=== PATIENT | female | born 1995 | race Caucasian/White ===

== ENCOUNTER 2017-09-26 12:33 | Emergency (ER) | payer OTHER ==
[2017-09-26 13:04] VITALS: RESP 18
[2017-09-26] MEDS ORDERED: Naproxen 500 MG TAB PO STA (13:29)
[2017-09-26] MEDS ORDERED: Naproxen 500 MG TAB PO ONE (13:38)
--- NOTE | 2017-09-26 13:48 | ED PDOC ---
HPI: CCC, URI, Sore Throat Time Seen by Provider: 09/26/17 13:07 Chief Complaint (Nursing): ENT Problem Chief Complaint (Provider): ENT Problem History Per: Patient History/Exam Limitations: no limitations Onset/Duration Of Symptoms: Days (x1 week) Current Symptoms Are (Timing): Still Present Location Of Pain: Throat Associated Symptoms: Fever (tactile) Additional Complaint(s): 22 y/o female with no PMHx presents to the ED for evaluation of a sore throat, onset one week ago. Patient was taking Advil at onset but states has not taken any medications in the last few days. Patient also reports of a tactile fever at onset but states that shes been afebrile the last 5-6 days. Patient reports of doing salt water gargles with mild relief. In addition, patient reports girlfriend is also being evaluated in the ER for similar symptoms. Otherwise: (- ) chills (-) ear pain, (-) nausea, (-) vomiting, (-) diarrhea, (-) abdominal pain, (-) chest pain, (-) cough (-) SOB (-) neck pain/stiffness (-) recent travel, (-) rash, (-) neck pain. PMD: None LNMP: 09/21/2017 Past Medical History Reviewed: Historical Data, Nursing Documentation, Vital Signs Vital Signs: Last Vital Signs Temp 98 F 09/26/17 14:49 Pulse 79 09/26/17 14:49 Resp 18 09/26/17 14:49 BP 118/72 09/26/17 14:49 Pulse Ox 99 09/26/17 14:49 - Medical History PMH: No Chronic Diseases - Surgical History Surgical History: No Surg Hx - Family History Family History: States: Unknown Family Hx - Social History Current smoker - smoking cessation education provided: Yes (4 Cigarettes per day ) - Home Medications Home Medications: Ambulatory Orders Medication Instructions Recorded Naproxen 500 mg PO BID PRN #20 tab 09/26/17 - Allergies Allergies/Adverse Reactions: Allergies Allergy/AdvReac Type Severity Reaction Status Date / Time No Known Allergies Allergy Verified 09/26/17 13:00 Review of Systems ROS Statement: Except As Marked, All Systems Reviewed And Found Negative Constitutional: Positive for: Fever (tactile on onset) ENT: Positive for: Throat Pain. Negative for: Ear Pain Cardiovascular: Negative for: Chest Pain Gastrointestinal: Negative for: Nausea, Vomiting, Abdominal Pain, Diarrhea Musculoskeletal: Negative for: Neck Pain Skin: Negative for: Rash Neurological: Negative for: Headache Physical Exam - Reviewed Nursing Documentation Reviewed: Yes Vital Signs Reviewed: Yes - Physical Exam Comments: GENERAL APPEARANCE: Patient is resting comfortably, awake, alert, oriented x 3, in no acute distress. SKIN: Warm, dry; (-) cyanosis. EYES: (-) conjunctival pallor. EOMI and painless ENMT: Canals : (-) cerumen impaction, TMs: (-) bulging and (-) erythema, (-) effusion, (-) perforation,(-) vesicles. Frontal / maxillary sinuses : (-) tenderness. (-) TMJ tenderness. Pharynx: (+) erythema, (-) exudate (-) hypertrophy. Uvula midline. Airway patent: (-) stridor (-) drooling. NECK: Full ROM, (+) supple, (-) stiffness, (-) tenderness, (-) lymphadenopathy CHEST AND RESPIRATORY: (-) rhonchi, (-) rales, (-) wheezes; breath sounds equal bilaterally. Respirations even and nonlabored, speaking in full sentences. HEART AND CARDIOVASCULAR: (-) irregularity ABDOMEN AND GI: Soft; (-) tenderness (-) guarding (-) distention. EXTREMITIES: (-) deformity NEURO AND PSYCH: Mental status as above. Cranial nerves grossly intact; strength symmetric. Gait steady, speech clear. - ECG O2 Sat by Pulse Oximetry: 100 (RA) Pulse Ox Interpretation: Normal Medical Decision Making Medical Decision Making: Time: 1300 Impression: Pharyngitis Plan: -- Throat Culture -- Rapid Strep Group A Antigen -- Naproxen 500 mg PO -- Re-evaluation 1430 Rapid Strep: Negative On re-evaluation, patient reports improvement of symptoms. On exam, patient remains AAOx3, in no acute distress. On exam, neck is supple, lungs CTA, cardiac RRR, neuro exam shows no focal findings. VSS, stable for discharge. Salt water gargles encouraged. Diagnostic results d/w the patient in great detail. Dx of pharyngitis d/w the patient. Based on history, exam and diagnostic results plan will be for discharge. Advised to follow up with primary care physician in 1-2 days without fail. Advised to take medication as prescribed. Return to the emergency room at any time for any new or worsening symptoms. Patient states she fully agrees with and understands discharge instructions. States that she agrees with the plan and disposition. Verbalized and repeated discharge instructions and plan. I have given the patient opportunity to ask any additional questions. Scribe Attestation: Documented by Stefan Gar, acting as a scribe for Shraddha Hernandez PA-C. Provider Scribe Attestation: All medical record entries made by the Scribe were at my direction and personally dictated by me. I have reviewed the chart and agree that the record accurately reflects my personal performance of the history, physical exam, medical decision making, and the department course for this patient. I have also personally directed, reviewed, and agree with the discharge instructions and disposition. Disposition - Clinical Impression Clinical Impression: Pharyngitis - Patient ED Disposition Is Patient to be Admitted: No Counseled Patient/Family Regarding: Studies Performed, Diagnosis, Need For Followup, Rx Given - Disposition Referrals: [facility] [Outside] Disposition: Routine/Home Disposition Time: 14:35 Condition: STABLE Additional Instructions: The emergency medical care you received today was directed at your acute symptoms. If you were prescribed any medication, please fill it and take as directed. It may take several days for your symptoms to resolve. Return to the Emergency Department if your symptoms worsen, do not improve, or if you have any other problems. Please contact your doctor in 2 days for re-evaluation and follow up / or call one of the physicians/clinics you have been referred to that are listed on the Patient Visit Information form that is included in your discharge packet. Bring any paperwork you were given at discharge with you along with any medications you are taking to your follow up visit. Our treatment cannot replace ongoing medical care by a primary care provider (PCP) outside of the emergency department. Prescriptions: Naproxen 500 mg PO BID PRN #20 tab PRN Reason: Pain, Moderate (4-7) Instructions: Viral Pharyngitis, Sore Throat in Adults Forms: [employer] Connect (Pashto) Print Language: TAJIK - POA Present On Arrival: None Results - Lab Results Lab Results: 09/26/17 13:00 Grp A Beta Strep Ag Negative
[2017-09-26 14:50] VITALS: BP 118/72; PULSE 79; TEMP 98
[2017-09-27 17:01] VITALS: O2SAT 100
== END 2017-09-26 14:49 | disposition home or self-care (01) ==
LOC: H.ER 12:33
DX: J02.9 Acute pharyngitis, unspecified (principal); R50.9 Fever, unspecified